=== PATIENT | female | born 1955 | race Caucasian/White ===

== ENCOUNTER 2022-12-14 11:13 | Inpatient (IN) | payer MEDICARE ==
[2022-12-14] MEDS ORDERED: Ondansetron PF 4 MG/2 ML Vial ONE (13:20)
[2022-12-14] MEDS ORDERED: Ketamine 50 MG/ML (10ML VIAL) SLOW IVP SCH (13:30)
[2022-12-14] MEDS ORDERED: fentaNYL 50 mcg/mL 1 mL Vial ONE ×2 (13:35→14:46)
[2022-12-14] MEDS ORDERED: TETANUS, DIPHTHERIA TOX,ADULT (TDVAX) 0.5 ML VIAL IM ONE (13:44)
[2022-12-14] MEDS ORDERED: Ondansetron ODT 4 MG TAB PO PRN (13:44)
[2022-12-14] MEDS ORDERED: Ipratropium/Albuterol 3 ML NEB NEB PRN (13:44)
[2022-12-14] MEDS ORDERED: hydrALAZINE 20 MG/ML VIAL SLOW IVP PRN (13:44)
[2022-12-14 13:58] LABS: #Eosinphils 0.1 thou/uL (0.0-0.7); #Monocytes 0.6 thou/uL (0.11-0.59); #Neutrophils 4.2 thou/uL (1.40-6.50); %Basophils 0.3 % (0.0-1.0); %Lymphocytes 32.9 % (21.0-51.0); %Neutrophils 57.5 % (42.0-75.0); Hematocrit 42.1 % (36.0-47.0); Hemoglobin 13.9 g/dL (12.0-16.0); Mean Corpuscular Hemoglobin 27.3 pg (27.0-31.0); Mean Corpuscular Volume 82.5 fl (78.0-98.0); Mean Platelet Volume 9.3 fL (7.4-10.4); Platelet Count 277 10x3/uL (130-400); RBC Distribution Width 13.1 % (11.5-14.5); White Blood Cell (WBC) Count 7.4 10x3/uL (4.8-10.8)
[2022-12-14 14:03] LABS: Bacteria/HPF None Seen HPF (None Seen); Bilirubin Negative (Negative); Blood, Urine Negative (Negative); CAUTI Indications for Culture Pelvic or flank pain; Clarity Clear (Clear); Glucose, Urine (Dipstick) Normal (Negative); Ketone, Urine Negative (Negative); Leukocyte Negative Leu/uL (Negative); Nitrite Negative (Negative); Protein, Urine (Dipstick) Negative (Neg-Trace); RBC/HPF 0-3 HPF (0-3); Specific Gravity, Urine 1.013 (1.002-1.036); Squamous Epithelial 0-3 HPF (0-3); Urobilinogen Normal mg/dL (Less than 2); WBC/HPF 0-3 HPF (0-3)
[2022-12-14 14:04] LABS: Urine Culture Reflex No No
[2022-12-14] MEDS ORDERED: KETAMINE 100 MG/ML (5ML VIAL) SLOW IVP SCH (14:15)
[2022-12-14 14:18] LABS: Prothrombin Time 13.6 sec (12.0-14.7)
[2022-12-14 14:19] LABS: PTT 27.5 sec (22.9-36.1)
[2022-12-14 14:24] LABS: ALT (SGPT) 30 U/L (8-55); AST (SGOT) 25 U/L (5-34); Albumin 4.1 g/dL (3.4-4.8); Alkaline Phosphatase 95 U/L (40-110); Anion Gap 15 mmol/L (10-20); BUN (Urea Nitrogen) 15 mg/dL (9.8-20.1); Bilirubin, Total 0.4 mg/dL (0.2-1.2); Calc. Creatinine Clearance 0 mL/min (70-130); Calcium 9.7 mg/dL (7.8-10.44); Carbon Dioxide 23 mmol/L (23-31); Chloride 103 mmol/L (98-107); Estimated GFR 78; Globulin 3.2 g/dL (2.4-3.5); Glucose 95 mg/dL (80-115); Potassium 4.1 mmol/L (3.5-5.1); Protein, Total 7.3 g/dL (5.8-8.1); Sodium 137 mmol/L (136-145)
[2022-12-14] MEDS ORDERED: Ketorolac Tromethamine 30 MG/ML VIAL ONE (14:46)
[2022-12-14 16:36] VITALS: BMI 38.0
[2022-12-14] MEDS ORDERED: FLU VACC QS2023(65UP)/MF59C/PF 60 MCG/0.5 ML SYRINGE IM ONE (16:45)
[2022-12-14] MEDS: traMADol HCl 50 MG TAB PO PRN ×2 (16:47→23:06)
[2022-12-14] MEDS: Acetaminophen 325 MG TAB PO SCH ×2 (16:47→23:06)
[2022-12-14] MEDS: Sodium Chloride 0.9% 1,000 ML IV SCH ×2 (16:49→23:07)
[2022-12-14] MEDS: Morphine 2 MG/ML VIAL SLOW IVP PRN ×2 (17:53→20:50)
[2022-12-14] MEDS: Gabapentin 300 MG CAP PO SCH (19:32)
[2022-12-14] MEDS: Famotidine 20 MG TAB PO SCH (19:32)
[2022-12-14] MEDS: Cyclobenzaprine 10 MG TAB PO PRN (19:32)
[2022-12-15] MEDS: traMADol HCl 50 MG TAB PO PRN (05:15)
[2022-12-15] MEDS: Cyclobenzaprine 10 MG TAB PO PRN (05:15)
[2022-12-15] MEDS: Acetaminophen 325 MG TAB PO SCH ×3 (05:15→17:49)
[2022-12-15] MEDS: Famotidine 20 MG TAB PO SCH ×2 (09:03→20:17)
[2022-12-15] MEDS: Gabapentin 300 MG CAP PO SCH ×3 (09:03→20:17)
[2022-12-15] MEDS: Sodium Chloride 0.9% 1,000 ML IV SCH ×2 (09:45→16:23)
[2022-12-15] MEDS ORDERED: Bupivacaine PF 0.5% 30 ML VIAL ONE (11:51)
[2022-12-15] MEDS ORDERED: fentaNYL 50 mcg/mL 1 mL Vial ONE (11:51)
[2022-12-15] MEDS ORDERED: Midazolam HCl 2 mg/2 ml Vial ONE (11:51)
[2022-12-15] MEDS ORDERED: Sodium Chloride 0.9% 100 ML ONE (12:11)
[2022-12-15] MEDS ORDERED: CEFAZOLIN 2 GM VIAL ONE (12:11)
[2022-12-15] MEDS ORDERED: fentaNYL PF 100 MCG/2 ML SYRINGE ONE (12:19)
[2022-12-15] MEDS ORDERED: Bupivacaine HCl 0.5%/Epinephrine 1:200,000/PF 30 ml Vial ONE (12:40)
[2022-12-15] MEDS ORDERED: fentaNYL 50 mcg/mL 1 mL Vial SLOW IVP PRN (12:47)
[2022-12-15] MEDS ORDERED: Lidocaine 1% PF 5 ML VIAL ONE (12:56)
[2022-12-15] MEDS ORDERED: Ketorolac Tromethamine 30 MG/ML VIAL ONE (12:56)
[2022-12-15] MEDS ORDERED: Ondansetron PF 4 MG/2 ML Vial ONE (12:56)
[2022-12-15] MEDS ORDERED: PROPOFOL 200 MG/20 ML VIAL ONE (12:56)
[2022-12-15] MEDS ORDERED: PHENYLEPHRINE-NS 100 MCG/ML 10 ML SYRINGE ONE (12:56)
[2022-12-15] MEDS ORDERED: Ondansetron PF 4 MG/2 ML Vial IVP PRN (13:00)
[2022-12-15] MEDS ORDERED: Ropivacaine 0.2% 550 ML 550 ML NERVE BLCK SCH (13:00)
[2022-12-15] MEDS ORDERED: HYDROcodone/Acetaminophen 10/325 mg Tablet PO PRN ×2 (13:00)
[2022-12-15] MEDS ORDERED: Promethazine HCl 25 MG/ML VIAL IM PRN ×2 (13:00→14:31)
[2022-12-15] MEDS ORDERED: traMADol HCl 50 MG TAB PO PRN ×2 (13:00)
[2022-12-15] MEDS ORDERED: Zolpidem Tartrate 5 MG TAB PO PRN (13:00)
[2022-12-15] MEDS ORDERED: Ondansetron HCl/PF 4 MG/2 ML Vial IVP PRN (14:31)
[2022-12-15] MEDS ORDERED: Morphine 4 MG/ML VIAL SLOW IVP PRN (14:32)
[2022-12-15] MEDS ORDERED: Communication Order-Pharmacy FS SCH (14:45)
[2022-12-15] MEDS: Ketorolac Tromethamine 30 MG/ML VIAL IVP SCH (17:51)
[2022-12-15] MEDS: Aspirin 81 mg Enteric Coated Tablet PO SCH (20:16)
[2022-12-15] MEDS: CEFAZOLIN 2 GM in Sodium Chloride 0.9% 100 ML IVPB SCH (20:16)
[2022-12-15] MEDS ORDERED: Calcium Carbonate 500 MG ChewTAB PO SCH (22:15)
[2022-12-16] MEDS: Acetaminophen 325 MG TAB PO SCH ×5 (00:14→23:33)
[2022-12-16] MEDS: Ketorolac Tromethamine 30 MG/ML VIAL IVP SCH ×5 (00:15→23:34)
[2022-12-16] MEDS: CEFAZOLIN 2 GM in Sodium Chloride 0.9% 100 ML IVPB SCH (03:31)
[2022-12-16 05:27] LABS: #Eosinphils 0.2 thou/uL (0.0-0.7); #Monocytes 0.7 thou/uL (0.11-0.59); #Neutrophils 4.1 thou/uL (1.40-6.50); %Basophils 0.3 % (0.0-1.0); %Eosinophils 2.9 % (0.0-10.0); %Lymphocytes 26.9 % (21.0-51.0); %Monocytes 10.1 % (0.0-10.0); %Neutrophils 59.7 % (42.0-75.0); Hematocrit 37.7 % (36.0-47.0); Hemoglobin 12.2 g/dL (12.0-16.0); Mean Corpuscular HGB CONC 32.4 g/dL (32.0-36.0); Mean Corpuscular Hemoglobin 27.5 pg (27.0-31.0); Mean Corpuscular Volume 84.9 fl (78.0-98.0); Mean Platelet Volume 9.5 fL (7.4-10.4); Platelet Count 231 10x3/uL (130-400); RBC Distribution Width 13.4 % (11.5-14.5); Red Blood Cell (RBC) Count 4.44 mill/uL (4.20-5.40); White Blood Cell (WBC) Count 6.9 10x3/uL (4.8-10.8)
[2022-12-16] MEDS: Sodium Chloride 0.9% 1,000 ML IV SCH ×3 (05:40→23:43)
[2022-12-16 06:09] LABS: ALT (SGPT) 21 U/L (8-55); AST (SGOT) 20 U/L (5-34); Albumin 3.3 g/dL (3.4-4.8); Alkaline Phosphatase 83 U/L (40-110); Anion Gap 14 mmol/L (10-20); BUN (Urea Nitrogen) 13 mg/dL (9.8-20.1); Bilirubin, Total 0.3 mg/dL (0.2-1.2); Calc. Creatinine Clearance 103 mL/min (70-130); Calcium 8.8 mg/dL (7.8-10.44); Carbon Dioxide 22 mmol/L (23-31); Chloride 109 mmol/L (98-107); Estimated GFR 68; Globulin 2.7 g/dL (2.4-3.5); Glucose 87 mg/dL (80-115); Potassium 3.8 mmol/L (3.5-5.1); Sodium 141 mmol/L (136-145)
[2022-12-16] MEDS: Aspirin 81 mg Enteric Coated Tablet PO SCH ×2 (09:16→20:40)
[2022-12-16] MEDS: Gabapentin 300 MG CAP PO SCH ×3 (09:16→20:40)
[2022-12-16] MEDS: Famotidine 20 MG TAB PO SCH ×2 (09:16→20:40)
[2022-12-16] MEDS ORDERED: Calcium Carbonate 500 MG ChewTAB PO PRN (19:37)
[2022-12-16] MEDS ORDERED: Venlafaxine HCl XR 75 MG CAP PO SCH (21:00)
[2022-12-17] MEDS: Ketorolac Tromethamine 30 MG/ML VIAL IVP SCH ×2 (05:21→13:19)
[2022-12-17] MEDS: Acetaminophen 325 MG TAB PO SCH ×2 (05:22→13:18)
[2022-12-17] MEDS ORDERED: Levothyroxine Sodium 50 MCG TAB PO SCH (06:00)
[2022-12-17] MEDS ORDERED: Atorvastatin Calcium 10 MG TAB PO SCH (09:00)
[2022-12-17] MEDS ORDERED: Magnesium Oxide 400 MG TAB PO SCH (09:00)
[2022-12-17] MEDS ORDERED: Lisinopril/Hydrochlorothiazide 10 mg/12.5 mg Tablet PO SCH (09:00)
[2022-12-17] MEDS: Gabapentin 300 MG CAP PO SCH ×2 (10:06→15:57)
[2022-12-17] MEDS: Aspirin 81 mg Enteric Coated Tablet PO SCH (10:07)
[2022-12-17] MEDS: Famotidine 20 MG TAB PO SCH (10:07)
[2022-12-17] MEDS ORDERED: Senokot 8.6 MG TAB PO SCH (11:00)
[2022-12-17] MEDS ORDERED: Polyethylene Glycol 3350 17 GM Packet PO SCH (11:00)
[2022-12-17 16:32] VITALS: BP 151/82; TEMP 98.1
[2022-12-18] MEDS ORDERED: Senokot 8.6 MG TAB PO SCH (09:00)
[2022-12-18] MEDS ORDERED: Polyethylene Glycol 3350 17 GM Packet PO SCH (09:00)
== END 2022-12-17 16:58 | DRG 494 ==
LOC: ERS 11:13 → SURG A 13:36
PROVIDERS: ADMIT Specialist; ATTEND Specialist
PROC: 0QSH04Z Reposition Left Tibia with Internal Fixation Device, Open Approach (ICD-10-PCS; principal; 2022-12-15)
PROC: 3E033XZ Introduction of Vasopressor into Peripheral Vein, Percutaneous Approach (ICD-10-PCS; 2022-12-15)
DX: S82.52XA Displaced fracture of medial malleolus of left tibia, initial encounter for closed fracture (principal); S82.832A Other fracture of upper and lower end of left fibula, initial encounter for closed fracture; I10 Essential (primary) hypertension; E03.9 Hypothyroidism, unspecified; K21.9 Gastro-esophageal reflux disease without esophagitis; M54.9 Dorsalgia, unspecified; G89.29 Other chronic pain; G43.909 Migraine, unspecified, not intractable, without status migrainosus; W18.30XA Fall on same level, unspecified, initial encounter; Z98.890 Other specified postprocedural states; Z90.89 Acquired absence of other organs; Z91.09 Other allergy status, other than to drugs and biological substances; Z91.041 Radiographic dye allergy status; Z88.8 Allergy status to other drugs, medicaments and biological substances; F32.A Depression, unspecified; E78.00 Pure hypercholesterolemia, unspecified
CPT/HCPCS: 36415; 71045; 71046; 80053; 81001; 85025; 85610; 85730; 93005; 93880; A4306; C1713; J1885; J2250; J2272; J2405; J2704; J2795; J3010; J3490; J7050; S0020